=== PATIENT | female | born 1970 | race Caucasian/White ===

== ENCOUNTER 2016-04-17 16:06 | Observation (INO) | payer BC ==
[~2016-04-17] VITALS: Ht 172.7 cm; Wt 79.4 kg
[2016-04-17] MEDS ORDERED: LIDOCAINE 2% VISC 15 ML UDC ONE (17:05)
[2016-04-17] MEDS ORDERED: ALU/MAG/SIM 30 ML UDC ONE (17:05)
[2016-04-17] MEDS ORDERED: NITROGLYCERIN 2% OINT 1 INCH PKT TOPICAL ONE (18:44)
[2016-04-17] MEDS ORDERED: ONDANSETRON 4 MG VIAL ONE (18:44)
[2016-04-17] MEDS ORDERED: MORPHINE 4 MG/ML SYR ONE (18:45)
[2016-04-17] MEDS ORDERED: KETOROLAC 30 MG/ML VIAL ONE (19:10)
[2016-04-17 20:53] VITALS: BP_SYST 108; RESP 18; TEMP 98.4
[2016-04-17 20:54] VITALS: Ht 172.7 cm; Wt 79.4 kg
[2016-04-17] MEDS ORDERED: ACETAMINOPHEN 325 MG TAB PO PRN (21:15)
[2016-04-17] MEDS ORDERED: NITROGLYCERIN 50 MG/250 ML IV PRN (21:15)
[2016-04-17] MEDS ORDERED: ONDANSETRON 4 MG VIAL IV PRN (21:15)
[2016-04-17] MEDS ORDERED: DOCUSATE SOD 100 MG CAP PO PRN (21:15)
[2016-04-17] MEDS ORDERED: TRAMADOL 50 MG TAB PO PRN (21:15)
[2016-04-17] MEDS ORDERED: SALINE FLUSH 10 ML FLUSH PRN (21:15)
[2016-04-17] MEDS ORDERED: TEMAZEPAM 15 MG CAP PO PRN (21:15)
[2016-04-17] MEDS ORDERED: SODIUM CHLORIDE 0.9% FLUSH BAG 500 ML IV PRN (21:15)
[2016-04-17] MEDS ORDERED: NITROGLYCERIN SL 0.4 MG TAB SL PRN (21:15)
[2016-04-17] MEDS ORDERED: MORPHINE 2 MG/ML SYR IV PRN (21:15)
[2016-04-17] MEDS ORDERED: LORAZEPAM 0.5 MG TAB PO PRN (21:15)
[2016-04-17 23:14] VITALS: RESP 16
[2016-04-17] MEDS: NITROGLYCERIN 2% OINT 1 INCH PKT TOPICAL SCH (23:30)
[2016-04-17 23:49] VITALS: BP_SYST 115; RESP 18; TEMP 97.3
[2016-04-18 03:54] VITALS: BP_SYST 99; RESP 18; TEMP 98
[2016-04-18] MEDS: NITROGLYCERIN 2% OINT 1 INCH PKT TOPICAL SCH (05:39)
[2016-04-18] MEDS ORDERED: SALINE FLUSH 10 ML FLUSH SCH (08:00)
[2016-04-18] MEDS ORDERED: ASPIRIN EC 81 MG TAB PO SCH (08:00)
[2016-04-18 08:15] VITALS: BP_SYST 104; RESP 18; TEMP 98.1
[2016-04-18] MEDS ORDERED: PANTOPRAZOLE 40 MG VIAL IV SCH (09:35)
[2016-04-18] MEDS ORDERED: ALU/MAG/SIM 30 ML UDC PO ONE (09:35)
[2016-04-18 12:02] VITALS: BP_SYST 104; RESP 18; TEMP 98.1
[2016-04-22] MEDS ORDERED: PANTOPRAZOLE 40 MG TAB PO SCH (07:00)
== END 2016-04-18 09:26 | disposition home or self-care (01) ==
LOC: ENRESERVTM → ENRESERVDT → ER 16:06 → ENPENDDIS 18:48 → EMR 18:48 → PCU2 20:27
PROVIDERS: ADMIT Internal Medicine Cardiovascular Disease; ATTEND Internal Medicine Cardiovascular Disease
CPT/HCPCS: 71010; 74176; 93005; 94799; 96374; 96375